=== PATIENT | female | born 1980 | race Two or more races ===

== ENCOUNTER 2017-12-27 14:32 | Emergency (ER) | payer OTHER ==
[~2017-12-27] VITALS: Ht 157.5 cm; Wt 50.3 kg
[2017-12-27] MEDS ORDERED: ZOFRAN ODT4 MG PO (15:40)
[2017-12-27] MEDS ORDERED: ULTRAM50 MG PO (15:40)
[2017-12-27] MEDS ORDERED: NAPROSYN500 MG PO (15:40)
[2017-12-27 15:48] VITALS: BP 117/88
== END 2017-12-27 15:59 | disposition home or self-care (01) ==
LOC: EME 14:32
DX: S00.83XA Contusion of other part of head, initial encounter (principal); Y04.2XXA Assault by strike against or bumped into by another person, initial encounter; Y07.59 Other non-family member, perpetrator of maltreatment and neglect
CPT/HCPCS: 99281; 99283